=== PATIENT | female | born 1990 | race Caucasian/White ===

== ENCOUNTER 2017-01-17 05:21 | Emergency (ER) | payer BC ==
--- NOTE | ~2017-01-17 | CR210 ---
[facility] A Service of [facility] & [facility] RADIOLOGY TEXT RESULTS PATIENT: JACEY CARVAJAL LOCATION: [facility] : [birth year] UNIT #: [id number] AGE: [address]: Raúl Moreira MD SEX: F ORDER DR: [id number] [facility] [address]. [place], [place] [address] [id number] E MR#: [id number] Acc #: [id number] NAME: JACEY CARVAJAL : 1990 SEX: F STUDY DATE/TIME: 01/17/2017 6:41 UNIT: [facility] ROOM: STUDY DESCRIPTION: CR Ribs Uni 2 View W PA Ch Lt Attending Physician: Raúl Moreira M.D. Ordering Physician: Raúl Moreira M.D. Primary Care Physician: Primary Care Physician No MEDICAL IMAGING REPORT This report is preliminary unless electronic signature is present EXAM Chest and left rib series 3 views HISTORY Left chest wall pain for about 5 hours. FINDINGS PA and lateral examination of the chest upright shows a good expansion of the parenchyma with a normal distribution of the pulmonary vascularity. There is no indication of congestion, effusion, infiltrate, tumor, or nodular density. The pleural reflections and diaphragmatic contours are normal. The cardiac silhouette and mediastinal anatomy is within normal limits. Multiple views of the left ribs show no evidence of fracture, bone destruction, or adjacent pleural thickening. There is no evidence of diffuse metabolic disease or bony demineralization. IMPRESSION Normal chest and left rib series. Dictated by... Ronnie Aguillon M.D. THIS IS AN ELECTRONICALLY VERIFIED REPORT Ronnie Aguillon M.D. at 01/17/2017 2:12 PM PAUL/elisabet TD: 01/17/2017 08:31 JOB #: [id number] MEDICAL IMAGING REPORT Page 1 of 1 COPY
[~2017-01-17 05:21] MED LIST: BACTRIM DS TABL1 TA1 PO; BACTRIM DS TABL1 TAB PO; CLEOCIN PO; DICLOFENAC PO; FLEXERIL10 M1 PO; IBUPROFEN800 MG PO; KEFLEX PO; KEFLEX500 MG PO; LORTAB 7.5-5001 TAB PO; NAPROSYN500 MG PO; PHENERGAN25 MG PO; VICODIN 5/1 TAB 5/50 PO; VICODIN 5/500 T1 TAB PO; ZOFRAN ODT4 MG PO; ZOVIRAX200 MG DOB
[2017-01-17 06:32] LABS: BASOPHIL# 0.1 X10e3 (0-0.3); BASOPHIL% 0.9 % (0-2.5); EOSINOPHIL# 0.1 X10e3 (0-0.7); HEMATOCRIT 40.6 % (35.0-45.0); HEMOGLOBIN 13.6 gm/dL (12.0-16.0); LYMPHOCYTE# 2.2 X10e3 (1.0-3.5); LYMPHOCYTE% 30.7 % (17.0-45.0); MEAN CELL VOLUME 89.6 FL (83-96); MEAN CORPUSCULAR HGB CONC 33.4 g/dL (30-36); MEAN PLATELET VOLUME 9.1 FL (6.5-11.5); MONOCYTE# 0.4 X10e3 (0-1.0); MONOCYTE% 5.9 % (3.0-12.0); NEUTROPHIL# 4.5 X10e3 (1.5-7.1); NEUTROPHIL% 61.5 % (40-75); PLATELET COUNT 343 X10e3 (140-420); RED BLOOD COUNT 4.52 X10e (3.90-5.30); WHITE BLOOD COUNT 7.3 X10e3 (4.0-10.5)
[2017-01-17 06:36] LABS: DIFF IND NO
[2017-01-17 07:59] LABS: ALBUMIN SERUM 4.2 g/dL (3.5-5.0); BILIRUBIN, DIRECT 0.1 mg/dL (0.0-0.2); BILIRUBIN,INDIRECT 0.4 mg/dL (0.0-0.9); BILIRUBIN,TOTAL 0.5 mg/dL (0.2-2.0); BUN/CREATININE RATIO 21.42; CALCIUM SERUM 9.3 mg/dL (8.4-10.2); CREATININE SERUM 0.7 mg/dL (0.6-1.4); GLOM FILT RATE Estimated 117.9 mL/min (>60); POTASSIUM 4.2 mmol/L (3.5-5.1); PROTEIN TOTAL SERUM 7.1 g/dL (6.0-8.3)
[2017-03-17] MEDS ORDERED: GABAPENTIN600 MG PO (15:57)
[2017-03-17] MEDS ORDERED: DULOXETINE HCL60 MG PO (15:58)
[2017-03-17] MEDS ORDERED: ZANAFLEX4 M1 PO (15:58)
[2017-03-17] MEDS ORDERED: SKELAXIN PO (15:58)
[2017-03-17] MEDS ORDERED: MOTION SICKNESS25 M4 PO (15:59)
[2017-03-17] MEDS ORDERED: PHENERGAN25 M1 (15:59)
[2017-03-17] MEDS ORDERED: HYDROCODON-ACE1 EAC7 PO (16:00)
[2017-03-17] MEDS ORDERED: ROBAXIN 750750 M1 (16:00)
[2017-03-17] MEDS ORDERED: SUMATRIPTAN SU100 MG PO (16:01)
== END 2017-01-17 07:29 | disposition home or self-care (01) ==
LOC: CED 05:21
PROVIDERS: Emergency Medicine
DX: R07.89 Other chest pain (principal); G89.29 Other chronic pain; Z88.0 Allergy status to penicillin; Z88.1 Allergy status to other antibiotic agents
CPT/HCPCS: 36415; 71101; 80048; 80076; 83690; 84703; 85025; 96374; 99284; J1885

== ENCOUNTER → 2017-03-07 | Outpatient (CLI) | payer OTHER ==
[~2017-03-07] MED LIST changes: +DULOXETINE HCL60 MG PO; +GABAPENTIN600 MG PO; +HYDROCODON-ACE1 EAC7 PO; +MOTION SICKNESS25 M4 PO; +PHENERGAN25 M1; +ROBAXIN 750750 M1; +SKELAXIN PO; +SUMATRIPTAN SU100 MG PO; +ZANAFLEX4 M1 PO
--- NOTE | ~2017-03-07 | NM22 ---
[facility] A Service of [facility] RADIOLOGY TEXT RESULTS PATIENT: JACEY CARVAJAL LOCATION: [facility] : [birth year] UNIT #: [id number] AGE: [address]: Francisco Javier Lovelace MD SEX: F ORDER DR: [id number] [facility] [place], [place] [address] [id number] O MR#: [id number] Acc #: [id number] NAME: JACEY CARVAJAL : 1990 SEX: F STUDY DATE/TIME: 03/07/2017 12:11 UNIT: [facility] ROOM: STUDY DESCRIPTION: NM Hepatobiliary W GB Pharm Attending Physician: Francisco Javier Lovelace M.D. Referring Physician: Francisco Javier Lovelace M.D. Ordering Physician: Francisco Javier Lovelace M.D. MEDICAL IMAGING REPORT This report is preliminary unless electronic signature is present EXAM HIDA scan 03/07/2017 HISTORY Right upper quadrant abdominal pain, epigastric pain radiating to the right side and along the back. Pain is constant with nausea, vomiting, abdominal bloating and distension with diarrhea. Symptoms for 1 month. FINDINGS The patient received intravenous injection of 5.95 mCi of technetium 99m tagged Choletec for hepatobiliary imaging. There is homogeneous distribution of radiotracer throughout the liver. Biliary and small bowel activity were seen by 15 minutes postinjection of the radiopharmaceutical. 15-minute sequential images were obtained of the upper abdomen for 1 hour with 90-minute and 120-minute delayed images also obtained. No gallbladder activity was identified after 2 hours of imaging. Findings are concerning for cystic duct obstruction and possible cholecystitis. Clinical correlation is recommended. IMPRESSION Nonvisualization of the gallbladder after 2 hours of imaging. Findings are concerning for cystic duct obstruction and possible cholecystitis. Clinical correlation is recommended. STAT * RESULT Dictated by... Bill Trujillo M.D. THIS IS AN ELECTRONICALLY VERIFIED REPORT [facility] A Service of [facility] RADIOLOGY TEXT RESULTS PATIENT: JACEY CARVAJAL LOCATION: [facility] : [birth year] UNIT #: [id number] AGE: [address]: Francisco Javier Lovelace MD SEX: F ORDER DR: Bill Trujillo M.D. at 03/07/2017 5:40 PM ALICIA/gretta TD: 03/07/2017 14:18 JOB #: [id number] MEDICAL IMAGING REPORT Page 1 of 1 COPY
== END | disposition home or self-care (01) ==
LOC: CNUC 11:16
DX: R10.9 Unspecified abdominal pain (principal)
CPT/HCPCS: 78227; A9537

== ENCOUNTER → 2017-03-17 | Day surgery (SDC) | payer OTHER ==
--- NOTE | ~2017-03-17 | OR ---
Unit #: [id number] #: [id number] Patient: JACEY CARVAJAL [id number] [place], [place] [address] [id number] O MR#: [id number] NAME: JACEY CARVAJAL ROOM: Date of Procedure: 03/17/2017 Admission Date: 03/17/2017 Surgeon: Tray Bell M.D. : 1990 Attending Physician: Tray Bell M.D. Primary Care Physician: Juliette Horton M.D. OPERATIVE REPORT PREOPERATIVE DIAGNOSIS Chronic cholecystitis. POSTOPERATIVE DIAGNOSIS Chronic cholecystitis. PROCEDURE PERFORMED Laparoscopic cholecystectomy. 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 ANESTHESIA General endotracheal anesthesia. ESTIMATED BLOOD LOSS Minimal. IV FLUIDS 800 crystalloid. COMPLICATIONS None. INDICATIONS FOR PROCEDURE The patient is a 27-year-old with gallstones. She presents for laparoscopic cholecystectomy. DESCRIPTION OF PROCEDURE The patient was taken to the operating theater and placed in supine position. General anesthesia was induced. The abdomen was prepped and draped. A 5-mm Optiview trocar was placed into the right upper quadrant without difficulty. The abdomen was insufflated to 15 mmHg with CO2. Under direct vision, I placed a subxiphoid 10 mm, right lateral 5 mm, umbilical 5 mm. General inspection of the abdomen revealed distended gallbladder with stones, but no acute inflammation. The gallbladder was retracted up over the liver, dissected the neck of the gallbladder and identified the cystic duct. Its junction with the gallbladder was confirmed. It was thus skeletonized, doubly hemoclipped, and divided. The cystic artery laid immediately posterior. This was doubly hemoclipped and divided. The gallbladder was removed from the gallbladder bed with Bovie electrocautery and delivered via the subxiphoid port. Hemostasis Unit #: [id number] #: [id number] Patient: JACEY CARVAJAL was adequate. I saw no other abnormalities. The ports were removed. The fascia was closed with 0 Vicryl and skin with 4-0 Vicryl. The patient tolerated the procedure well and sent to recovery room in good condition. Dictated by... Yazmin Arzate/gray TD: 03/17/2017 15:40 JOB #: [id number] OPERATIVE REPORT Page 1 of 1 X Tray Bell MD PROCEDURE OPERATIVE NOTE
--- NOTE | ~2017-03-17 | EKG ---
PATIENT: JACEY CARVAJAL UNIT #: [id number] Ventricular Rate: 82 BPM Atrial Rate: 82 BPM P-R Interval: 148 ms QRS Duration: 80 ms Q-T Interval: 352 ms QTC Calculation(Bezet): 411 ms P [place]: 72 degrees Calculated R [place]: 42 degrees Calculated T [place]: 44 degrees Diagnosis Line: Normal sinus rhythm Diagnosis Line: Normal ECG Diagnosis Line: No previous ECGs available Diagnosis Line: Confirmed by VALERIE NAVAS MD ([id number]) on 03/18/2017 Diagnosis Line: 11:38:33 PM INTERPRETING MD: ELOISE CRONIN
[2017-03-17 08:45] LABS: HEMATOCRIT 36.4 % (35.0-45.0); HEMOGLOBIN 12.2 gm/dL (12.0-16.0); MEAN CELL VOLUME 90.2 FL (83-96); MEAN CORPUSCULAR HEMOGLOBIN 30.3 PG (28-34); MEAN CORPUSCULAR HGB CONC 33.6 g/dL (30-36); MEAN PLATELET VOLUME 8.2 FL (6.5-11.5); RED BLOOD COUNT 4.04 X10e (3.90-5.30); RED CELL DISTRIBUTION WIDTH 13.5 % (11.0-15.5); WHITE BLOOD COUNT 5.3 X10e3 (4.0-10.5)
== END | disposition home or self-care (01) ==
LOC: CSUR 07:45
PROVIDERS: Surgery
DX: K80.10 Calculus of gallbladder with chronic cholecystitis without obstruction (principal); G43.909 Migraine, unspecified, not intractable, without status migrainosus; F41.9 Anxiety disorder, unspecified; Z88.1 Allergy status to other antibiotic agents; Z98.818 Other dental procedure status; Z79.899 Other long term (current) drug therapy; Z98.890 Other specified postprocedural states
CPT/HCPCS: 84703; 85027; 88304; 93005; J0330; J1170; J1644; J2250; J2405; J2710; J3010; J3370